=== PATIENT | male | born 1980 | race African-American/Black ===

== ENCOUNTER 2019-10-28 09:18 | Emergency (ER) | payer OTHER ==
[~2019-10-28] VITALS: Ht 175.3 cm; Wt 81.7 kg
[~2019-10-28 09:18] MED LIST: PREDNISONE 20 M20 M1 PO; VENTOLIN17 GM INH
[2019-10-28 09:20] VITALS: BP 240/144
[2019-10-28] MEDS ORDERED: PREDNISONE 20 M20 MG PO (09:32)
[2019-10-28] MEDS ORDERED: PROAIR HFA8.5 GM INH (09:32)
== END 2019-10-28 09:50 | disposition home or self-care (01) ==
LOC: ER 09:18
DX: J45.909 Unspecified asthma, uncomplicated (principal); R03.0 Elevated blood-pressure reading, without diagnosis of hypertension